=== PATIENT | male | born 1975 | race Caucasian/White ===

== ENCOUNTER 2020-05-01 19:31 | Emergency (ER) | payer OTHER ==
[~2020-05-01 19:31] MED LIST: BACTRIM DS TAB1 EACH PO; BACTROBAN OINT22 GM EXT; IBUPROFEN600 MG PO; KEFLEX CAP 500500 MG PO
[2020-05-01 22:50] LABS: HEMOGLOBIN 15.7 gm/dl (14.0-17.5); RED BLOOD COUNT 4.99 M/UL (4.20-5.50); WHITE BLOOD COUNT 10.9 K/UL (4.5-11.0)
[2020-05-01 23:10] LABS: BUN/CREATININE RATIO 13 (0-10)
[2020-05-02] MEDS ORDERED: PROAIR DIGIHAL90 MCG INH (01:25)
[2020-05-02] MEDS ORDERED: MEDROL DOSEPAK 24 MG PO (01:25)
[2020-05-02] MEDS ORDERED: CLARITIN10 M2 PO (01:25)
[2020-05-02] MEDS ORDERED: BACTRIM DS TAB1 EACH PO (01:52)
[2020-05-02] MEDS ORDERED: IBUPROFEN800 MG PO (01:52)
[2020-05-02] MEDS ORDERED: CEPHALEXIN500 M1 PO (01:52)
== END 2020-05-02 02:44 | disposition home or self-care (01) ==
LOC: ER1 19:31
PROVIDERS: Emergency Medicine
DX: L03.116 Cellulitis of left lower limb (principal); F17.200 Nicotine dependence, unspecified, uncomplicated
CPT/HCPCS: 73562; 80053; 83605; 83690; 85025; 85652; 86140; 87040; 96372; 99283; J0696

== ENCOUNTER 2021-07-05 22:06 | Emergency (ER) | payer SELFPAY ==
[~2021-07-05 22:06] MED LIST changes: +CEPHALEXIN500 M1 PO; +CLARITIN10 M2 PO; +IBUPROFEN800 MG PO; +MEDROL DOSEPAK 24 MG PO; +PROAIR DIGIHAL90 MCG INH
[2021-07-05 23:57] LABS: HEMOGLOBIN 16.2 gm/dl (14.0-17.5); RED BLOOD COUNT 5.12 M/UL (4.20-5.50); WHITE BLOOD COUNT 6.8 K/UL (4.5-11.0)
[2021-07-06 00:09] LABS: BUN/CREATININE RATIO 17 (0-10)
== END 2021-07-06 01:04 | disposition home or self-care (01) ==
LOC: ER1 22:06
PROVIDERS: Family Medicine
DX: B34.9 Viral infection, unspecified (principal); F17.200 Nicotine dependence, unspecified, uncomplicated; Z20.822 Contact with and (suspected) exposure to COVID-19
CPT/HCPCS: 0240U; 80053; 81001; 85025; 87081; 87880; 99283